=== PATIENT | male | born 1960 | race Caucasian/White ===

== ENCOUNTER → 2018-01-10 14:21 | Outpatient (CLI) | payer OTHER, SELFPAY ==
[2018-01-10 14:34] LABS: Bacteria 0 SEEN /hpf (None Seen); Mucous, Urine 0 SEEN /hpf (<or=2+); Red Blood Cells-Urine 0 SEEN /hpf (0-5); Squamous Epithelial Cells - UA 0 SEEN /hpf (0-5); White Blood Cells 0 SEEN /hpf (0-5)
--- NOTE | 2018-01-10 14:59 | RAD_ITS ---
STUDY: X-RAY - RIGHT SHOULDER REASON FOR EXAM: Male, 57 years old. Right shoulder pain TECHNIQUE: 4 view(s) of the shoulder. COMPARISON: None. FINDINGS: Normal glenohumeral articulation. There is degenerative arthrosis of the acromioclavicular joint without inferior osseous spur formation. Normal acromion. Normal humeral head and visualized proximal humerus. The soft tissue structures are unremarkable. There is no demonstrated fracture. Normal visualized pulmonary apex. RAD/Shoulder min 2 Views IMPRESSION: Acromioclavicular degenerative changes. No acute fracture or dislocation. Electronically Signed: Curt Rodriguez MD at 23:59 EDT , Service support ,
[2018-01-10 15:52] LABS: Absolute Lymphocyte Count 1.46 X10^3/ul (0.83-4.51); Absolute Neutrophil Count 2.3 X10^3/uL (2.0-7.7); Basophil# 0.03 X10^3/uL; Basophil% 0.7 % (0-1); Eosinophil# 0.28 X10^3/uL; Eosinophils% 6.5 % (0-5); Hematocrit 43.5 % (40-54); Hemoglobin 14.4 g/dl (13.0-16.5); Lymphocyte # 1.46 X10^3/ul (4.0); Mean Corp Hgb Conc 33.1 g/gl (32-36); Mean Corpuscular Hgb 28.9 pg (27.0-32.0); Mean Corpuscular Volume 87.2 fL (80-94); Mean Platelet Vol. 10.8 fl (6.2-12.0); Monocyte# 0.26 X10^3/uL; Monocyte% 6.1 % (0-10); Neutrophil # 2.25 X10^3/uL (2.7-7.7); Neutrophil % 52.5 % (47-70); Platelet Count 222 K/mm3 (150-450); RBC Distribution Width CV 13.3 % (11.6-14.6); RBC Distribution Width SD 42.4 fl (35.1-43.9); Red Blood Count 4.99 M/mm3 (4.6-6.2); White Blood Count 4.3 K/mm3 (4.4-11.0)
[2018-01-10 15:54] LABS: POSITIVE COUNT NO; POSITIVE DIFFERENTIAL NO; POSITIVE MORPHOLOGY NO
[2018-01-10 16:14] LABS: ALB/GLOB Ratio 1.1 RATIO (0.9-2.4); AST(SGOT) 31 U/L (15-37); Alanine Aminotransfer ALT/SGPT 44 U/L (16-61); Alkaline Phosphatase 64 U/L (45-117); Anion Gap 8 (5-15); BUN 16 mg/dL (7-18); BUN/Creat Ratio 14.7 RATIO (10-20); Calcium,Total 8.9 mg/dL (8.5-10.1); Chloride 106 mmol/L (98-107); Cholesterol 199 mg/dL (200); Creatinine, Serum 1.09 mg/dL (0.70-1.30); EST Glomerular Filtration Rate 74 mL/min (>60); Est Glom Filt Rate - Afr Amer 90 mL/min (>60); Globulin 3.8 g/dL (2.2-4.2); Glucose 94 mg/dL (74-106); High Density Lipoprotein 32 mg/dL; PSA,Total - Annual Screen 0.54 ng/mL (0.00-4.00); Potassium 3.9 mmol/L (3.5-5.1); Protein, Total 7.8 g/dL (6.4-8.2); Sodium Level 138 mmol/L (136-145); Thyroid Stim Hormone (TSH) 1.22 uIU/mL (0.358-3.74); Triglycerides 357 mg/dL; Very Low Density Lipoprotein 71 mg/dL (5-40)
[2018-01-10 18:11] LABS: Color, Urine Yellow (Yellow); Glucose, Dipstick Normal (Normal); Ketone-Dipstick Negative (Negative); Leukocyte Esterase-Dipstick Negative /ul (Negative); Nitrite-Dipstick Negative (Negative); Occult Blood-Urine Negative /ul (Negative); Protein-Dipstick Negative (Negative); Urine Bilirubin Dipstick Negative (Negative); Urine Clarity Clear (Clear); Urine Urobilinogen Normal (Normal)
[2018-01-10 18:55] LABS: Amphetamine Urine VISTA NEGATIVE (<1000 ng/mL); Barbiturate Urine VISTA NEGATIVE (< 200 ng/mL); Benzodiazepine Urine VISTA NEGATIVE (< 200 ng/mL); Cocaine Urine VISTA NEGATIVE (< 300 ng/mL); Ecstacy Urine VISTA NEGATIVE (< 500 ng/mL); Methadone Urine VISTA NEGATIVE (< 300 ng/mL); PCP Urine VISTA NEGATIVE (< 25 ng/mL); THC Urine VISTA POSITIVE (< 50 ng/mL); Vista UDS pH Range 5
== END ==
PROVIDERS: Family Provider Family Medicine; PCP Family Medicine; Visit Provider Family Medicine
DX: Z00.00 Encounter for general adult medical examination without abnormal findings (principal); M25.511 Pain in right shoulder; E01.0 Iodine-deficiency related diffuse (endemic) goiter; Z12.5 Encounter for screening for malignant neoplasm of prostate; F12.10 Cannabis abuse, uncomplicated
CPT/HCPCS: 36415; 73030; 80053; 80061; 80307; 81001; 84153; 84439; 84443; 85025; G0103

== ENCOUNTER → 2018-01-22 15:00 | Outpatient (CLI) | payer OTHER, SELFPAY ==
--- NOTE | 2018-01-22 15:01 | US_ITS ---
STUDY: THYROID ULTRASOUND REASON FOR EXAM: Male, 57 years old. Enlarged thyroid TECHNIQUE: Ultrasound evaluation of the thyroid was performed with real-time and static dyer-scale imaging. COMPARISON: None. FINDINGS: RIGHT LOBE: The right lobe of the thyroid gland measures 5.5 x 2.0 x 2.0 cm. There is a homogeneous echotexture. There are 2 nodules of the right thyroid lobe, the first located in the midpole measuring 9 x 4 x 9 mm, and the second in the lower pole measuring 7 x 9 x 7 mm. These nodules demonstrate irregular margins and demonstrate minimal internal vascularity. LEFT LOBE: The left lobe of the thyroid gland measures 5.4 x 1.8 x 1.9 cm. cm. There is a homogeneous echotexture. There are no demonstrated solid, cystic or complex lesions. ISTHMUS: The isthmus measures 4 mm . The regional lymph nodes are normal. US/Thyroid IMPRESSION: Mid and lower pole nodules of the right thyroid lobe as detailed above. Electronically Signed: Randal Roger MD at 21:30 EDT , Service support ,
== END ==
PROVIDERS: Family Provider Family Medicine; PCP Family Medicine; Visit Provider Family Medicine
DX: E01.0 Iodine-deficiency related diffuse (endemic) goiter (principal)
CPT/HCPCS: 76536

== ENCOUNTER 2018-02-05 06:14 | Day surgery (SDC) | payer OTHER, SELFPAY ==
[2018-02-05 07:15] VITALS: BP 136/97; PULSE 71; RESP 18; TEMP 36.4; O2SAT 97; BMI 31.8
--- NOTE | 2018-02-05 07:48 | PCM.HP.STD ---
Problem List (1) Encounter for screening for malignant neoplasm of colon Status: Acute History of Present Illness Date of Admission: 02/05/18 The patient is a 57 year old M who presents for screening colonoscopy. Past Medical History Allergies No Known Allergies Allergy (Verified 01/30/18 14:09) Smoking Status: Never smoker Review of Systems Cardiovascular: Denies: Chest Pain, Chest Pressure, Chest Tightness, Palpitations Respiratory: Denies: Cough, Hemoptysis, Shortness of breath at rest, Shortness of breath upon exertion, Wheezing Gastrointestinal: Denies: Abdominal Pain, Constipation, Diarrhea, Hematemesis, Nausea, Melena, Vomiting VTE Information - Inpt Only VTE Present on Admission: No VTE Mechan Device Prophylaxis: None VTE Pharm Prophylaxis ordered?: No Reason prophylaxis not ordered:: Treatment Not Indicated Patient Problems: Active and Suspected Problems Encounter for screening for malignant neoplasm of colon (Acute) - Physical Exam Lungs: Clear to auscultation Cardiovascular: Regular rate, Regular Rhythm, No murmurs Abdomen: Bowel Sounds Present, Soft, Non Tender, Non-Distended Vital Signs Temp Pulse Resp BP Pulse Ox 97.5 F L 71 18 136/97 H 97 02/05/18 07:15 02/05/18 07:15 02/05/18 07:15 02/05/18 07:15 02/05/18 07:15 Oxygen Delivery Method Room Air Weight: 234 lb 12.677 oz Body Mass Index (BMI) 31.8 Assessment/Plan Active and Suspected Problems Encounter for screening for malignant neoplasm of colon (Acute) My plan is to perform a colonoscopy.
--- NOTE | 2018-02-05 07:50 | PCM.OPRPT ---
Problem List (1) Encounter for screening for malignant neoplasm of colon Status: Acute Report of Operation Date of Procedure: 02/05/18 Pre-Operative Diagnosis: z12.11 screening colonoscopy Post-Operative Diagnosis: Same Surgery/Procedure Performed:: [id number] colonoscopy Type of Anesthesia:: MAC Anesthesiologist: Derick Banks Description of Procedure: Patient was brought into the endoscopy suite. Placed in the left lateral decubitus position. Given graded anesthesia. Scope was inserted into the rectum and directed through the sigmoid colon, descending colon, transverse colon, ascending colon, to the cecum. Operative findings: 1. Cecum: Normal appearance no mass lesions normal ileocecal valve. 2. Ascending colon: Normal appearance no mass lesions 3. Transverse colon: Normal appearance no mass lesions. 4. Descending colon: Normal appearance no mass lesions. Scattered diverticular disease was identified 5. Sigmoid colon: Normal appearance no mass lesions. Moderate amount of diverticular disease was identified 6. Rectum: Normal appearance no mass lesions retroflexion did did show a small amount of hemorrhoidal disease. It did not appear to be actively bleeding. The scope was withdrawn digital rectal exam was performed showing a smooth prostate with no nodules. The patient will need another colonoscopy in 10 years. - Admit VTE Documentation VTE Present on Admission: No VTE Mechan Device Prophylaxis: None VTE Pharm Prophylaxis ordered?: No Reason prophylaxis not ordered:: Treatment Not Indicated
[2018-02-05 07:51] VITALS: BP 112/81; BP 136/97; PULSE 68; RESP 16; TEMP 36.1; O2SAT 95
[2018-02-05 07:55] VITALS: BP 104/88; BP 136/97; PULSE 65; RESP 18; O2SAT 95
[2018-02-05 08:00] VITALS: BP 113/94; BP 136/97; PULSE 61; RESP 18; O2SAT 96
[2018-02-05 08:07] VITALS: BP 119/93; BP 136/97; PULSE 61; RESP 18; TEMP 36.4; O2SAT 97
[2018-02-05 08:20] VITALS: BP 136/97
== END 2018-02-05 08:20 | disposition home or self-care (01) ==
LOC: EN 06:14 → AC 06:16
PROVIDERS: Family Provider Family Medicine; PCP Family Medicine; Visit Provider Surgery
PROC: 0DJD8ZZ Inspection of Lower Intestinal Tract, Via Natural or Artificial Opening Endoscopic (ICD-10-PCS; CPT 45378; principal; 2018-02-05 07:25)
DX: Z12.11 Encounter for screening for malignant neoplasm of colon (principal); K57.90 Diverticulosis of intestine, part unspecified, without perforation or abscess without bleeding; F12.20 Cannabis dependence, uncomplicated
CPT/HCPCS: 45378; J7120